=== PATIENT | female | born 1950 | race Caucasian/White ===

== ENCOUNTER → 2018-04-19 10:43 | Outpatient (CLI) | payer MEDICARE, SELFPAY ==
[2018-04-19 14:36] LABS: Basophils % 0.6 % (0.1-2.0); Eosinophils # 0.2 K/mm3 (0.0-0.4); Eosinophils % 2.9 % (0.1-12.0); Hematocrit 46.6 % (37.0-47.0); Hemoglobin 15.3 g/dL (12.2-16.2); Lymphocytes % 39.6 % (10-50); Mean Corpuscular HGB Conc 32.9 g/dL (31.8-35.4); Mean Corpuscular Volume 91.4 fl (81-99); Mean Platelet Volume 9.1 fl (7.4-10.4); Monocytes # 0.6 K/mm3 (0.1-1.0); Monocytes % 7.7 % (1.7-9.3); Neutrophils # 3.8 K/mm3 (1.8-7.8); Neutrophils % 49.3 % (37.0-80.0); Platelet Count 265 K/mm3 (142-424); Red Cell Distribution Width 13.1 % (11.5-17.5); White Blood Count 7.7 K/mm3 (4.8-10.8)
[2018-04-19 19:46] LABS: Alanine Aminotransferase 27 U/L (12-78); Albumin Level 3.7 gm/dL (3.4-5.0); Albumin/Globulin Ratio 1.3 (1.1-1.8); Alkaline Phosphatase 76 U/L (46-116); Anion Gap 12.4 mEq/L (5-15); Aspartate Amino Transferase 13 U/L (15-37); Bilirubin,Total 0.4 mg/dL (0.2-1.0); Blood Urea Nitrogen 14 mg/dL (7-18); Calcium 9.4 mg/dL (8.5-10.1); Carbon Dioxide 29 mmol/L (21.0-32.0); Chloride 108 mmol/L (98-107); Chol/HDL Ratio 3.8 (1-3.5); Cholesterol 226 mg/dL (140-200); Creatinine,Serum 0.89 mg/dL (0.55-1.02); Estimated Glomerular Filt Rate 63 ml/min (>60); GFR (African American) 76 ML/MIN (>60); Globulin 2.8 gm/dl (1.3-3.2); Glucose 84 mg/dL (74-106); HDL Cholesterol 60 mg/dL (29-89); LDL Cholesterol 146 mg/dL (0-130); Potassium 4.4 mmoL/L (3.5-5.1); Sodium 145 mmol/L (136-145); Thyroid Stimulating Hormone 4.39 uIU/ml (0.358-3.740); Total Protein,Serum 6.5 gm/dL (6.4-8.2); Triglycerides 101 mg/dL (30-200); VLDL Cholesterol 20 mg/dL (0-40)
[2018-04-20 15:25] LABS: Vitamin D 25 Hydroxy 25.2 ng/mL (30.0-100.0)
[2018-04-21 13:28] LABS: Free T4 (Free Thyroxine) 0.74 ng/dl (0.76-1.46)
== END ==
PROVIDERS: PCP Nurse Practitioner Family; Visit Provider Nurse Practitioner Family
DX: E78.2 Mixed hyperlipidemia (principal); J43.1 Panlobular emphysema; M53.9 Dorsopathy, unspecified; M81.0 Age-related osteoporosis without current pathological fracture
CPT/HCPCS: 36415; 80053; 80061; 82652; 84439; 84443; 85025

== ENCOUNTER → 2018-05-02 14:51 | Outpatient (CLI) | payer MEDICARE, SELFPAY ==
--- NOTE | 2018-05-02 14:59 | MM_ITS ---
MM Dig screening mamm BI w/CAD CAD Screening COMPARISON: Digital mammograms with CAD 08/23/2015 and 05/16/2014 INDICATION: There is a history of breast cancer in patient's niece diagnosed at age 37 TECHNIQUE: Standard CC and MLO images were obtained. R2 CAD reviewed. FINDINGS: The breasts are composed primarily of fat with minimal scattered fiber glandular densities throughout each breast. There is a mole marker near the axillary tail left breast. There is no suspicious lesion and there are no suspicious microcalcifications. IMPRESSION: Upper fatty parenchyma with no suspicious lesion seen BI-RADS Category: 1 Negative RECOMMENDED FOLLOW-UP: 1YR - 1 YEAR FOLLOW-UP (A letter has been sent to the patient regarding results of the study.)
== END ==
PROVIDERS: PCP Internal Medicine Adolescent Medicine; Visit Provider Internal Medicine Adolescent Medicine
DX: Z12.31 Encounter for screening mammogram for malignant neoplasm of breast (principal)
CPT/HCPCS: 77067

== ENCOUNTER → 2018-10-13 14:38 | Outpatient (CLI) | payer MEDICARE, SELFPAY ==
[2018-10-13 15:00] LABS: Basophils % 0.2 % (0.1-2.0); Eosinophils # 0.1 K/mm3 (0.0-0.4); Eosinophils % 0.9 % (0.1-12.0); Hematocrit 46.3 % (37.0-47.0); Hemoglobin 14.9 g/dL (12.2-16.2); Lymphocytes # 2.6 K/mm3 (0.7-4.5); Lymphocytes % 23.3 % (10-50); Mean Corpuscular HGB Conc 32.3 g/dL (31.8-35.4); Mean Corpuscular Hemoglobin 29.4 pg (27.0-31.2); Mean Corpuscular Volume 91.1 fl (81-99); Mean Platelet Volume 7.8 fl (7.4-10.4); Monocytes # 0.8 K/mm3 (0.1-1.0); Monocytes % 7.2 % (1.7-9.3); Neutrophils # 7.6 K/mm3 (1.8-7.8); Neutrophils % 68.4 % (37.0-80.0); Platelet Count 347 K/mm3 (142-424); Red Blood Count 5.09 M/mm3 (4.20-5.40); Red Cell Distribution Width 13.3 % (11.5-17.5); White Blood Count 11.1 K/mm3 (4.8-10.8)
--- NOTE | 2018-10-13 15:01 | XR_ITS ---
PROCEDURE: XR LUMBAR SPINE MIN 4V CLINICAL INDICATION: MULTILEVEL DDD, low back pain COMPARISON: No exams were available for comparison FINDINGS: Mild thoracolumbar curvature convex left. Multilevel degenerate disc disease from T11-S1 with bony hypertrophy and anterior osteophytes. Mild facet arthritic change at L4-L5 and S1. No acute fracture or dislocation. No lytic or blastic change. IMPRESSION: Degenerative changes, no acute finding Dictated by: Diony Daniel MD 10/13/2018 16:56 Signed by: <Electronically signed by Diony Daniel MD in [facility]> 10/13/2018 16:56
[2018-10-13 15:40] LABS: Erythrocyte Sedimentation Rate 2 mm/hr (0-30)
[2018-10-13 19:17] LABS: Alanine Aminotransferase 28 U/L (12-78); Albumin Level 3.8 gm/dL (3.4-5.0); Albumin/Globulin Ratio 1.4 (1.1-1.8); Alkaline Phosphatase 79 U/L (46-116); Anion Gap 14.4 mEq/L (5-15); Aspartate Amino Transferase 11 U/L (15-37); Bilirubin,Total 0.4 mg/dL (0.2-1.0); Blood Urea Nitrogen 16 mg/dL (7-18); Calcium 9.4 mg/dL (8.5-10.1); Carbon Dioxide 29 mmol/L (21.0-32.0); Chloride 103 mmol/L (98-107); Creatinine,Serum 0.76 mg/dL (0.55-1.02); Estimated Glomerular Filt Rate 75 ml/min (>60); GFR (African American) 91 ML/MIN (>60); Globulin 2.8 gm/dl (1.3-3.2); Glucose 96 mg/dL (74-106); Potassium 4.4 mmoL/L (3.5-5.1); Sodium 142 mmol/L (136-145); Total Protein,Serum 6.6 gm/dL (6.4-8.2)
[2018-10-13 19:21] LABS: C-Reactive Protein < 0.2 mg/dL (0.0-0.9)
[2018-10-16 16:29] LABS: Vitamin D 25 Hydroxy 26.3 ng/mL (30.0-100.0)
[2018-10-16 16:31] LABS: Vitamin B12 505 pg/mL (232-1245)
[2018-10-17 15:26] LABS: Anti-Centromere B Antibodies 0.3 AI (0.0-0.9); Anti-Jo-1 <0.2 AI (0.0-0.9); Anti-Smith Antibody <0.2 AI (0.0-0.9); Antichromatin Antibodies 0.2 AI (0.0-0.9); Antiscleroderma-70 Antibodies 0.9 AI (0.0-0.9); RNP Antibodies 0.9 AI (0.0-0.9); Sjogren's Anti-SS-A <0.2 AI (0.0-0.9); Sjogren's Anti-SS-B <0.2 AI (0.0-0.9)
[2018-10-18 06:55] LABS: Anti-DNA (DS) Ab Qn <1 IU/mL (0-9)
== END ==
PROVIDERS: Visit Provider Nurse Practitioner Family
DX: M15.0 Primary generalized (osteo)arthritis (principal); M53.9 Dorsopathy, unspecified; G89.4 Chronic pain syndrome; Z79.899 Other long term (current) drug therapy
CPT/HCPCS: 36415; 72110; 80053; 82607; 82652; 84443; 85025; 85651; 86140; 86225; 86235

== ENCOUNTER → 2019-05-24 11:08 | Outpatient (CLI) | payer MEDICARE, SELFPAY ==
--- NOTE | 2019-05-24 11:23 | XR_ITS ---
PROCEDURE: XR CHEST 2V CLINICAL HISTORY: ACUTE FEBRILE ALLNESS, COPD Cough, COPD COMPARISON: CXR CHEST(2 VIEWS-NOT PORTABLE) from 03/05/2014 FINDINGS: The cardiomediastinal silhouette and pulmonary vascularity are within normal limits. Hyperinflation with attenuation of the peripheral pulmonary vessels consistent with COPD. There is granuloma in the left lung base. No lobar consolidation or collapse. No acute bony abnormalities. IMPRESSION: COPD, no acute finding Dictated by: Diony Daniel MD 05/24/2019 11:58 Electronically signed by Diony Daniel MD in [facility] 05/24/2019 11:58
[2019-05-24 11:45] LABS: Basophils # 0.1 K/mm3 (0-0.2); Basophils % 0.8 % (0.1-2.0); Eosinophils # 0.2 K/mm3 (0.0-0.4); Eosinophils % 2.2 % (0.1-12.0); Hematocrit 48.5 % (37.0-47.0); Hemoglobin 15.6 g/dL (12.2-16.2); Lymphocytes # 2.5 K/mm3 (0.7-4.5); Lymphocytes % 25.7 % (10-50); Mean Corpuscular HGB Conc 32.2 g/dL (31.8-35.4); Mean Corpuscular Hemoglobin 29.7 pg (27.0-31.2); Mean Corpuscular Volume 92.2 fl (81-99); Mean Platelet Volume 8.4 fl (7.4-10.4); Monocytes # 0.7 K/mm3 (0.1-1.0); Neutrophils # 6.4 K/mm3 (1.8-7.8); Neutrophils % 64.3 % (37.0-80.0); Platelet Count 299 K/mm3 (142-424); Red Blood Count 5.26 M/mm3 (4.20-5.40); Red Cell Distribution Width 12.7 % (11.5-17.5); White Blood Count 9.9 K/mm3 (4.8-10.8)
[2019-05-24 12:58] LABS: Alanine Aminotransferase 22 U/L (12-78); Albumin Level 4.2 g/dl (3.5-5.0); Anion Gap 10.5 mEq/L (5-15); Bilirubin,Total 0.3 mg/dl (0.2-1.3); Blood Urea Nitrogen 17 mg/dl (7-17); Carbon Dioxide 29 mmol/L (22.0-30.0); Chloride 104 mmol/L (98-107); Estimated Glomerular Filt Rate 83 ml/min (>60); GFR (African American) 100 ML/MIN (>60); Glucose 97 mg/dl (74-100); Potassium 5.5 mmoL/L (3.5-5.1); Sodium 138 mmol/L (136-145)
[2019-05-24 13:10] LABS: Albumin/Globulin Ratio 1.6 (1.1-1.8); Alkaline Phosphatase 75 U/L (38-126); Aspartate Amino Transferase 28 U/L (14-36); Calcium 10.3 mg/dl (8.4-10.2); Globulin 2.6 g/dL (1.3-3.2); Total Protein,Serum 6.8 g/dl (6.3-8.2)
== END ==
PROVIDERS: PCP Internal Medicine Adolescent Medicine; Visit Provider Internal Medicine Adolescent Medicine
DX: R50.9 Fever, unspecified (principal); R68.89 Other general symptoms and signs; J44.1 Chronic obstructive pulmonary disease with (acute) exacerbation; Z20.828 Contact with and (suspected) exposure to other viral communicable diseases
CPT/HCPCS: 36415; 71046; 80053; 85025

== ENCOUNTER → 2019-11-23 15:05 | Outpatient (POV) | payer MEDICARE, SELFPAY ==
[2019-11-23 15:30] VITALS: BP 122/63; PULSE 71; RESP 18; O2SAT 96; BMI 26.8
--- NOTE | 2019-11-23 15:50 | HMH.PMCON ---
Assessment and Plan (1) Neck pain Current visit: Yes Status: Chronic Category: Medical Code(s): M54.2 - Cervicalgia (2) Cervical radiculopathy Current visit: Yes Status: Chronic Category: Medical Code(s): M54.12 - Radiculopathy, cervical region (3) Low back pain Current visit: Yes Status: Chronic Category: Medical Code(s): M54.5 - Low back pain (4) Mid back pain Current visit: Yes Status: Chronic Category: Medical Code(s): M54.9 - Dorsalgia, unspecified (5) Lumbar radiculopathy Current visit: Yes Status: Chronic Category: Medical Code(s): M54.16 - Radiculopathy, lumbar region - Assessment and plan all Dx Assessment and Plan for all problems:: We will schedule the patient for imaging of her cervical, thoracic, and lumbar spine. Patient has tried and failed conservative therapies of physical therapy and previous epidural steroid injections. She does try home stretching program, but gets intense pain with any type of exercise. She is using ice and heat therapies as well as prescribed oral medications. We will see her back in the clinic after her imaging to discuss a further plan of care. Patient has been instructed to contact clinic if she has any concerns before next appointment. The patient and I specifically discussed risk factors for COVID19. These risks include, but are not limited to age greater than 60, heart or lung disease, diabetes, immunosuppression, and travel. We also discussed NSAIDs may worsen COVID19 infection or symptoms. Patient should not use NSAIDs to treat COVID19 signs or symptoms. Patient was also informed that any type of corticosteroid of any form (oral or injection) will decrease the patient's immune system response and may increase the likelihood of COVID19 [address] Meredith has reviewed this note and agrees with this plan of care. This note was dictated using voice recognition software and make contain errors or omissions. HPI - Data of Consult Patient: new to practice Consult date: 11/23/19 Requesting Physician: Edith Brand APRN Primary Care Provider: Tristin Willard MD - Consult Narrative Reason for consult: Neck pain, mid back pain, low back pain with radicular symptoms History of present illness: Ms. Meadows is a 69 year old female presents today for consultation for neck, mid back, and low back pain. Patient says that the pain is radiating into her bilateral arms and bilateral lower extremities causing numbness and tingling in her legs. Patient rates her pain a 7 out of 10 today. She has managed with oral medications by her primary care provider. Patient has had epidural steroid injections in the past and she says she does get relief up to 2 to 3 months, but her pain does return. She has not had an MRI of her spine for some time. She says that she tried physical therapy, however, the pain was too intense and she was unable to continue with the therapy. She has tried oral medications which do take the edge off of the pain, however, her pain continues. Patient says that ice and heat therapies do not give her any relief. She does try a continued home stretching program, but is limited due to the pain. Patient has had this pain for greater than 5 years. She says her pain is worse with standing and walking and the leg pain does improve with sitting, however, her back pain continues regardless of movement or positioning. CC: Edith Brand APRN [facility] History I have reviewed the patient's past medical history: Yes Medical History: Reports:: Anxiety, Chronic Obstructive Pulmonary Disease (COPD), Depression, Hyperlipidemia, Lung Disease Denies:: Cancer, Diabetes Mellitus Type 1, Diabetes Mellitus Type 2, Internal Pacemaker, MRSA, Seizures *Have you ever received a pneumonia vaccine?: No *Have you received a flu vaccine this season?: No Other Medical History: Reports: Arthritis, Other Other Surgeries: Yes: Cancer Surgery, Colonoscop
== END ==
PROVIDERS: PCP Internal Medicine Adolescent Medicine; Visit Provider Clinical Nurse Specialist Family Health
DX: M54.2 Cervicalgia (principal); M54.12 Radiculopathy, cervical region; M54.5 Low back pain; M54.16 Radiculopathy, lumbar region
CPT/HCPCS: 99202

== ENCOUNTER → 2019-12-18 12:49 | Outpatient (CLI) | payer MEDICARE, SELFPAY ==
--- NOTE | 2019-12-18 12:53 | MR_ITS ---
PROCEDURE: MR CERVICAL SPINE WO CON CLINICAL INDICATION: BACK PAIN Right-sided neck pain, right arm pain, bilateral shoulder pain COMPARISON: No exams were available for comparison TECHNIQUE: Standard multiplanar multiecho sequences are performed without contrast. 3-D MIP and myelographic images are also rendered and reviewed FINDINGS: The craniocervical junction has an unremarkable appearance. C2-C3: Mild left-sided foraminal narrowing from facet hypertrophic change. C3-C4: Mild right foraminal narrowing from facet and uncovertebral hypertrophy. C4-C5: Degenerate disc disease with minimal bulging disc which is slightly eccentric to the right with mild uncovertebral hypertrophy on the right and mild right-sided foraminal narrowing. There is minimal flattening of the cord anteriorly however, there is no evidence of canal stenosis. C5-C6: Mild degenerative disc disease. C6-C7: Unremarkable. C7-T1: Minimal bulging disc. There is a mild degree of motion artifact which obscures fine detail especially of the cervical cord. IMPRESSION: Mild cervical spondylosis. Please see above for detailed description at each level. No canal stenosis or extruded herniated disc. Dictated by: Diony Daniel MD 12/18/2019 15:17 Diony Daniel MD in [facility] 12/18/2019 15:17
--- NOTE | 2019-12-18 12:53 | MR_ITS ---
PROCEDURE: MR THORACIC SPINE WO CON CLINICAL INDICATION: BACK PAIN Bilateral back pain COMPARISON: CR XR LUMBAR SPINE MIN 4V from 10/13/2018 TECHNIQUE: Routine multiplanar multi echo sequences are performed without gadolinium enhancement. FINDINGS: There is normal alignment. No acute fracture or dislocation is evident. Unremarkable bone marrow signal intensity. Spinal cord has an unremarkable appearance. There is mild multilevel disc desiccation suggesting mild degenerative disc disease. No canal stenosis or disc herniation. There are small anterior osteophytes in the lower thoracic spine. IMPRESSION: Mild degenerative changes. No disc herniation or canal stenosis. Dictated by: Diony Daniel MD 12/18/2019 15:10 Diony Daniel MD in [facility] 12/18/2019 15:10
== END ==
PROVIDERS: PCP Internal Medicine Adolescent Medicine; Visit Provider Clinical Nurse Specialist Family Health
DX: M54.2 Cervicalgia (principal); M54.6 Pain in thoracic spine; M54.5 Low back pain
CPT/HCPCS: 72141; 72146; 76376

== ENCOUNTER → 2019-12-19 12:48 | Outpatient (CLI) | payer MEDICARE, SELFPAY ==
--- NOTE | 2019-12-19 12:50 | MR_ITS ---
PROCEDURE: MR LUMBAR SPINE WO CON CLINICAL INDICATION: BACK PAIN Low back pain with bilateral leg pain with leg numbness the COMPARISON: CR XR LUMBAR SPINE MIN 4V from 10/13/2018 MR MR CERVICAL SPINE WO CON from 12/18/2019 TECHNIQUE: Standard multiplanar multiecho sequences are performed without contrast. 3-D MIP and myelographic images are also rendered and reviewed FINDINGS: There is normal alignment. The spinal cord ends at the T12-L1 level. T11-T12: Mild degenerative disc disease. T12-L1: Mild degenerative disc disease. L1-L2: Mild degenerative disc disease with minimal bulging disc. There is a small left paracentral disc herniation with superior extrusion causing some mild left lateral recess narrowing. No obvious impingement. There are anterior osteophytes at this level. L2-L3: Mild bulging disc. L3-L4: Mild bulging disc with facet and ligamentum hypertrophy with mild bilateral lateral recess narrowing L4-5: Degenerate disc disease with bulging disc. There is a small left lateral disc protrusion causing some impingement upon the exiting L4 nerve root. There is facet and ligamentum hypertrophy at this level with canal stenosis. There is moderate left foraminal narrowing. Small annular fissure is noted at L4-5 posteriorly and centrally. Type 2 type endplate changes are present L5-S1: Bulging disc with degenerative disc disease with facet and ligamentum hypertrophy with mild to moderate bilateral foraminal narrowing. IMPRESSION: 1. L1-L2: Mild degenerative disc disease with minimal bulging disc. There is a small left paracentral disc herniation with superior extrusion causing some mild left lateral recess narrowing. No obvious impingement. There are anterior osteophytes at this level. 2. L4-5: Degenerate disc disease with bulging disc. There is a small left lateral disc protrusion causing some impingement upon the exiting L4 nerve root. There is facet and ligamentum hypertrophy at this level with canal stenosis. There is moderate left foraminal narrowing. Small annular fissure is noted at L4-5 posteriorly and centrally. Type 2 type endplate changes are present 3. Multilevel lumbar spondylosis with degenerative disc disease, facet and ligamentum hypertrophy with lateral recess and foraminal narrowing. Please see above for detailed description at each level. Dictated by: Diony Daniel MD 12/20/2019 14:16 Diony Daniel MD in [place] 12/20/2019 14:16
== END ==
PROVIDERS: PCP Internal Medicine Adolescent Medicine; Visit Provider Clinical Nurse Specialist Family Health
DX: M54.2 Cervicalgia (principal); M54.5 Low back pain
CPT/HCPCS: 72148; 76376

== ENCOUNTER → 2019-12-28 11:34 | Outpatient (POV) | payer MEDICARE, SELFPAY ==
--- NOTE | 2019-12-28 11:53 | HMH.PAINSOAP ---
[facility] Pain Management SOAP Note Subjective:: Patient is a pleasant 69-year-old white female who presents today for follow-up. She has been treated for neck mid back and low back pain. Should her pain does radiate into her bilateral lower extremities. She says that she has severe pain in bilateral calves as well as bilateral knee pain. Patient says raising her knees to her chest does give her some relief. She says that her legs feel as though they cannot hold up her body . She says she feels like she is going to fall off them. She says the leaning forward gives her relief. Her pain is worse with standing and walking and worsens by evening time each day. She says about 7:00 each evening she is unable to do much walking due to the pain. Patient has tried physical therapy, however, it worsened her pain. She tries to do exercises at home, however, it is limited due to the severity of the pain. She does take oral opiates for pain relief. This gives her about 40% relief. She also uses ice and heat therapies which have not been very beneficial for pain relief. She does take [id number] Tylenol on occasion. Patient is unable to tolerate ibuprofen. She does rate her pain a 6 out of 10 today. Patient has had a series of lumbar epidural steroid injections in the past for which she did get up to 70 to 80% relief. She recently had imaging of her cervical, thoracic, and lumbar spine. She would like to discuss the results today. Review of Systems General: No recent weight changes, no fever, no sleep disturbances Respiratory: No cough, no shortness of air, no recurring pulmonary infections Cardiovascular/peripheral vascular: No chest pain, no palpitations, no edema, no shortness of breath Gastrointestinal: No new onset incontinence, normal bowel movements reported Genitourinary: No new onset incontinence Musculoskeletal: Intermittent neck pain, intermittent mid back pain, chronic low back pain with radiation into bilateral calves and knees Psychiatric: Normal mood/affect Neurological: [Denies weakness in extremities], [denies balance issues] Objective:: Physical exam General: Alert and oriented x3, no acute distress, pleasant and cooperative, [on room air] Lungs: Respirations even and unlabored, symmetrical chest expansion Eyes: PERRL Musculoskeletal: Flexion and extension of cervical, thoracic, and lumbar spine somewhat guarded secondary to pain, deep tendon reflexes normal, strength in upper and lower extremities [5/5], [abnormal gait noted] positive straight leg test Neurological: Speech clear, extrusion operator equal, no gross sensory deficit Assessment:: Degenerative disc disease lumbar spine with lumbar radiculopathy symptoms, spinal stenosis with neurogenic claudication symptoms Plan:: The patient I did discuss her MRI results today. She has had lumbar epidural steroid injections in the past and has gotten relief with the injections. She had a series of the injections with Dr. Calles previously. She would like to proceed with a lumbar epidural steroid injection. We will schedule her for an injection at L4-L5 with an epidurogram. She does have some stenosis noted to her MRI with ligamentum flavum hypertrophy. The patient does exhibit neurogenic claudication symptoms. The patient is not on any anticoagulation therapy. We will plan to see her back after her injections to reassess her symptoms. She has been instructed to contact the clinic if she has any concerns before her next appointment. The patient and I specifically discussed risk factors for COVID19. These risks include, but are not limited to age greater than 60, heart or lung disease, diabetes, immunosuppression, and travel. We also discussed NSAIDs may worsen COVID19 infection or symptoms. Patient should not use NSAIDs to treat COVID19 signs or symptoms. Patient was also informed that any type of corticosteroid of any form (oral or injection) will decrease the patient's im
[2019-12-28 12:28] VITALS: BP 118/77; PULSE 68; RESP 18; O2SAT 98; BMI 22.6
== END ==
PROVIDERS: PCP Internal Medicine Adolescent Medicine; Visit Provider Clinical Nurse Specialist Family Health
DX: M51.16 Intervertebral disc disorders with radiculopathy, lumbar region (principal); M48.062 Spinal stenosis, lumbar region with neurogenic claudication
CPT/HCPCS: 99212

== ENCOUNTER 2020-01-05 12:50 | Day surgery (SDC) | payer MEDICARE, SELFPAY ==
[2020-01-05 13:15] VITALS: BP 122/77; PULSE 79; RESP 18; TEMP 36.7; O2SAT 96; BMI 21.9
[2020-01-05 13:48] VITALS: BP 148/88; BP 149/87; PULSE 83; RESP 18; O2SAT 98
[2020-01-05 14:00] VITALS: BP 120/87; PULSE 81; RESP 20; O2SAT 95
--- NOTE | 2020-01-05 14:02 | HMH.PMPROC ---
- Procedure Date: 01/05/20 Time: 14:02 Anesthesiologist:: Vini Meredith MD Complications:: None Pre-procedure Diagnosis:: Degenerative disc disease of lumbar spine with lumbar radiculopathy symptoms and spinal stenosis with neurogenic claudication symptoms Post-procedure Diagnosis:: Same Indications for Procedure:: This patient is a pleasant 69-year-old white female who we are treating for low back pain with lumbar radiculopathy symptoms. She does have lumbar spinal stenosis with neurogenic claudication symptoms. We will do a lumbar epidural steroid injection today with epidurogram to assess stenosis. Procedure Details:: Informed consent was obtained and the risk and benefits of the procedure was explained to the patient. The patient was taken to the procedure room. The patient was placed prone on the procedure table. The patient was prepped and draped in sterile fashion. C-arm fluoroscopy was used to view the lumbar spine. Skin and subcutaneous tissues were anesthetized using lidocaine. I placed an 18-gauge epidural needle and advanced into the L4-L5 interspace using fluoroscopic guidance and [id number] to air. After confirmation of needle placement in the epidural space with dye I injected 2 mL of lidocaine 1.5% with Depo-Medrol 80 mg. Patient tolerated the procedure well with no complications. Plan and Disposition:: We will follow-up with her in 2 weeks. Will reevaluate symptoms at that time. Given dye spread and difficulty of getting into the epidural space we will plan on pursuing lumbar epidural steroid injections prior to minimally invasive lumbar decompression. I do believe she would be a candidate however I would like to complete series of lumbar epidural steroid injections first.
== END 2020-01-05 14:01 | disposition home or self-care (01) ==
LOC: SC.PAINP 12:52
PROVIDERS: PCP Internal Medicine Adolescent Medicine; Visit Provider Anesthesiology
DX: M51.16 Intervertebral disc disorders with radiculopathy, lumbar region (principal); M48.062 Spinal stenosis, lumbar region with neurogenic claudication; J44.9 Chronic obstructive pulmonary disease, unspecified; F41.9 Anxiety disorder, unspecified; F32.9 Major depressive disorder, single episode, unspecified
CPT/HCPCS: 62323; J1040; Q9966

== ENCOUNTER → 2020-02-01 13:01 | Outpatient (POV) | payer MEDICARE, SELFPAY ==
[2020-02-01 13:13] VITALS: BP 119/73; PULSE 74; RESP 18; TEMP 36.2; O2SAT 98; BMI 22.6
--- NOTE | 2020-02-01 13:26 | HMH.PAINSOAP ---
[facility] Pain Management SOAP Note Subjective:: Patient is a 69-year-old white female who presents today for follow-up. She recently underwent a lumbar epidural steroid injection at L4-L5 area. She has chronic low back pain with lumbar radiculopathy symptoms. Pain does go into her bilateral hips and legs. Is worse on the left side. Patient was also evaluated for possible mild procedure at her last visit. She did have an epidurogram with her epidural. Patient says that she got about 80% relief with her previous injection for about a week. Her pain has started to return. She is also having bilateral knee pain. She is says her pain is worse with standing or walking and improves with sitting as well as leaning forward. Patient did discuss a series of the lumbar epidural steroid injections with Dr. Russo at her last visit. She has tried oral medications along with stretching at home as well as physical therapy for greater than 6 weeks. She has not gotten any relief. She rates her pain a 6 out of 10 today. Review of Systems General: No recent weight changes, no fever, no sleep disturbances Respiratory: No cough, no shortness of air, no recurring pulmonary infections Cardiovascular/peripheral vascular: No chest pain, no palpitations, no edema, no shortness of breath Gastrointestinal: No new onset incontinence, normal bowel movements reported Genitourinary: No new onset incontinence Musculoskeletal: Low back pain with radiation into bilateral hips and legs, worse to left leg Psychiatric: Normal mood/affect Neurological: [Denies weakness in extremities], [denies balance issues] Objective:: Physical exam General: Alert and oriented x3, no acute distress, pleasant and cooperative, [on room air] Lungs: Respirations even and unlabored, symmetrical chest expansion Eyes: PERRL Musculoskeletal: Flexion and extension of lumbar spine somewhat guarded secondary to pain, deep tendon reflexes normal, strength in upper and lower extremities [5/5], [abnormal gait noted] Neurological: Speech clear, sandblaster paint sprayer equal, no gross sensory deficit Assessment:: Degenerative disc disease lumbar spine with lumbar radiculopathy symptoms, spinal stenosis with neurogenic claudication symptoms, bilateral knee pain Plan:: Patient did discuss undergoing a series of injections with Dr. Russo to her lumbar spine. He does feel that the patient would be an appropriate candidate for mild procedure, however, he would like to proceed with the series of lumbar epidural steroid injections. We will see if the patient does get relief with these injections. If her pain does continue, we will proceed with a mild procedure. She would also like to proceed in the future with bilateral knee injections. She understands we will initially start with epidural steroid injection at L4-L5. Patient is not on any anticoagulation therapy. She has tried and failed other conservative therapies. We will see her back in the clinic after injection to reassess her symptoms. She has been instructed to contact the clinic if she has any concerns before next appointment. The patient and I specifically discussed risk factors for COVID19. These risks include, but are not limited to age greater than 60, heart or lung disease, diabetes, immunosuppression, and travel. We also discussed NSAIDs may worsen COVID19 infection or symptoms. Patient should not use NSAIDs to treat COVID19 signs or symptoms. Patient was also informed that any type of corticosteroid of any form (oral or injection) will decrease the patient's immune system response and may increase the likelihood of COVID19 [address] Meredith has reviewed this note and agrees with this plan of care. This note was dictated using voice recognition software and make contain errors or omissions. [facility] History I have reviewed the patient's past medical history: Yes Medical History: Reports:: Anxiety, Cancer (skin), Chronic Obstructive Pul
== END ==
PROVIDERS: PCP Internal Medicine Adolescent Medicine; Visit Provider Clinical Nurse Specialist Family Health
DX: M51.16 Intervertebral disc disorders with radiculopathy, lumbar region (principal); M48.062 Spinal stenosis, lumbar region with neurogenic claudication; M25.561 Pain in right knee; M25.562 Pain in left knee
CPT/HCPCS: 99212

== ENCOUNTER 2020-02-16 11:24 | Day surgery (SDC) | payer MEDICARE, SELFPAY ==
[2020-02-16 11:54] VITALS: BP 183/80; BP 193/80; PULSE 76; RESP 18; TEMP 36.6; O2SAT 98; BMI 22.3
[2020-02-16 12:21] VITALS: BP 122/74; PULSE 74; RESP 18; O2SAT 98
[2020-02-16 12:23] VITALS: BP 125/74; PULSE 85; RESP 18; O2SAT 98
--- NOTE | 2020-02-16 12:31 | HMH.PMPROC ---
- Procedure Date: 02/16/20 Time: 12:31 Anesthesiologist:: Vini Meredith MD Complications:: None Pre-procedure Diagnosis:: Degenerative disc disease of lumbar spine with lumbar radiculopathy symptoms Post-procedure Diagnosis:: Same Indications for Procedure:: This patient is a pleasant 69-year-old white female who we are treating for low back pain with lumbar radiculopathy symptoms. She did well with her last lumbar epidural steroid injection. She is 80 to 90% better. She still has some residual pain. We will plan on repeat lumbar pleural steroid injection under fluoroscopy today. Procedure Details:: Lumbar epidural steroid injection under fluoroscopy Informed consent was obtained and the risk and benefits of the procedure was explained to the patient. The patient was taken to the procedure room. The patient was placed prone on the procedure table. The patient was prepped and draped in sterile fashion. C-arm fluoroscopy was used to view the lumbar spine. Skin and subcutaneous tissues were anesthetized using lidocaine. I placed an 18-gauge epidural needle and advanced into the L4-L5 interspace using fluoroscopic guidance and [id number] to air. After confirmation of needle placement in the epidural space with dye I injected 2 mL of lidocaine 1.5% with Depo-Medrol 80 mg. Patient tolerated the procedure well with no complications. Plan and Disposition:: We will follow-up with her in 2 weeks. Will reevaluate symptoms at that time.
== END 2020-02-16 12:30 | disposition home or self-care (01) ==
LOC: SC.PAINP 11:26
PROVIDERS: PCP Internal Medicine Adolescent Medicine; Visit Provider Anesthesiology
DX: M51.16 Intervertebral disc disorders with radiculopathy, lumbar region (principal); J44.9 Chronic obstructive pulmonary disease, unspecified; E78.5 Hyperlipidemia, unspecified; Z82.49 Family history of ischemic heart disease and other diseases of the circulatory system; Z88.8 Allergy status to other drugs, medicaments and biological substances; Z72.0 Tobacco use; F41.9 Anxiety disorder, unspecified; F32.9 Major depressive disorder, single episode, unspecified
CPT/HCPCS: 62323; J1040; Q9966

== ENCOUNTER → 2020-08-09 14:31 | Outpatient (CLI) | payer MEDICARE, SELFPAY ==
--- NOTE | 2020-08-09 14:34 | CT_ITS ---
PROCEDURE: CT LUNG SCREENING CLINICAL INDICATION: TOBACCO USE DISORDER Thirty pack year smoking history COMPARISON: CR XR CHEST 2V from 05/24/2019 TECHNIQUE: The exam was performed on a GE Light Speed [address] scanner using 2.90 mGy CTDI. A low dose helical CT CHEST was performed on a multi-detector scanner. All CT scans at the facility use one or more dose reduction, viz: automated exposure control, ma/kV adjustment per patient size (including targeted exams where dose is matched to indication, i.e. head), or iterative reconstruction technique. The LDCT was performed in a facility that meets the criteria for the screening program. Data regarding this exam was submitted to [employer] which is an approved registry. The order for this exam indicates that it came as a result of a lung cancer screening counseling shard decision-making visit that included all the elements required of such a visit including smoking cessation. The radiologist interpreting this exam meets the [facility] criteria for the LDCT lung cancer screening program. The exam is reported using the Lung-RADS classification scale and reported to the [employer]CR registry. NOTE: This study was performed for the specific purposes of lung cancer screening and is not an alternative to diagnostic chest CT. RADIATION DOSE: CTDI vol(CT dose Index-volume) = 2.90mG DLP (Dose Length Product) = 93.2 mGcm FINDINGS: COPD changes with scattered areas of scarring. A spiculated nodule is present in the right upper lobe superiorly measuring 10 by 9 x 8 mm and may be due to developing neoplasm or an area of scarring. 3 mm faint opacity is noted in the right upper lobe inferiorly image 40. Calcified granuloma right lower lobe. 3 mm nodule right lower lobe laterally may be due to granuloma image 55. Fissural nodular opacity is present along the right major fissure partially calcified at 5 mm.. There is a linear nodular opacity within the left lower lobe laterally nonspecific image 57 possibly due to an area of scarring measuring approximately 1.3 x 0.3 cm. Calcified nodules present in the lingula. The posterior costophrenic sulcus is incompletely imaged on both sides. OTHER FINDINGS: Degenerative changes thoracic spine IMPRESSION: Lung-RADS Category 4A Suspicious 10 mm spiculated nodule right upper lobe which could represent developing neoplasm or pulmonary scar. If there are old studies available at another institution, suggest they be submitted for comparison. No old exams are available at this institution. If no old exams are available then PET CT is recommended. Follow-up: Suggest PET-CT regarding the spiculated nodule in the right upper lobe if there are no old studies available for comparison. Dictated by: Diony Daniel MD 08/19/2020 10:06 Diony Daniel MD in [place] 08/19/2020 10:06
--- NOTE | 2020-08-09 14:34 | MM_ITS ---
PROCEDURE INFORMATION: Exam: MG Screening 3D Mammography Exam date and time: 08/09/2020 2:34 PM Age: 69 years old Clinical indication: Encounter for screening mammogram for malignant neoplasm of breast TECHNIQUE: Imaging protocol: Screening tomosynthesis and 2D mammography including computer-aided detection (CAD) when performed. COMPARISON: 1. MG SCBI MM Dig screening mamm BI w/CAD 05/02/2018 3:07 PM 2. MG DMSB DIG MAMM-SCREEN [place] 08/23/2015 3:41 PM FINDINGS: MAMMOGRAPHY: Breast composition: The breast tissue is composed of scattered areas of fibroglandular density. Mass: None. Architectural distortion: None. Calcifications: No suspicious calcifications. Asymmetric density: None. Skin thickening: None. Axillary adenopathy: None. IMPRESSION: No mammographic evidence of malignancy. Annual screening is recommended unless otherwise clinically indicated. ASSESSMENT: BI-RADS Category 1: Negative
== END ==
PROVIDERS: PCP Internal Medicine Adolescent Medicine; Visit Provider Internal Medicine Adolescent Medicine
DX: Z87.891 Personal history of nicotine dependence (principal); Z12.2 Encounter for screening for malignant neoplasm of respiratory organs; Z12.31 Encounter for screening mammogram for malignant neoplasm of breast
CPT/HCPCS: 71271; 77063; 77067

== ENCOUNTER → 2020-10-15 14:28 | Outpatient (CLI) | payer MEDICARE, SELFPAY ==
[2020-10-15 15:40] VITALS: PULSE 66; PULSE 68
== END ==
PROVIDERS: PCP Internal Medicine Adolescent Medicine; Visit Provider Internal Medicine Pulmonary Disease
DX: R06.09 Other forms of dyspnea (principal)
CPT/HCPCS: 94060; 94640; 94727; 94729

== ENCOUNTER → 2020-10-17 15:56 | Outpatient (CLI) | payer MEDICARE, SELFPAY ==
[2020-10-23 13:25] LABS: Alpha-1-Antitrypsin 126 mg/dL (101-187)
== END ==
PROVIDERS: Visit Provider Internal Medicine Pulmonary Disease
DX: J44.9 Chronic obstructive pulmonary disease, unspecified (principal)
CPT/HCPCS: 82103; 82104

== ENCOUNTER 2023-11-29 13:01 | Outpatient (CLI) | payer MEDICARE, SELFPAY ==
[2023-11-29 13:55] VITALS: PULSE 72; PULSE 75
[2023-11-29] MEDS: ALBUTEROL 0.083% 2.5 MG/3 ML NEB IH (13:55)
== END 2023-11-29 23:59 | disposition home or self-care (01) ==
LOC: RT 13:03
PROVIDERS: PCP Internal Medicine Adolescent Medicine; Visit Provider Internal Medicine Pulmonary Disease
DX: R06.09 Other forms of dyspnea (principal)
CPT/HCPCS: 94060; 94618; 94640; 94726; 94729; J7613

== ENCOUNTER 2023-12-01 15:52 | Outpatient (CLI) | payer MEDICARE, SELFPAY | END 2023-12-01 23:59 | disposition home or self-care (01) | LOC: LAB.DROPOF 15:53 | PROVIDERS: PCP Internal Medicine Adolescent Medicine; Visit Provider Internal Medicine Pulmonary Disease | DX: J44.9 Chronic obstructive pulmonary disease, unspecified (principal); J43.9 Emphysema, unspecified; R91.1 Solitary pulmonary nodule; Z12.2 Encounter for screening for malignant neoplasm of respiratory organs | CPT/HCPCS: 87070; 87077; 87186; 87205 ==